=== PATIENT | female | born 1945 | race Caucasian/White ===

== ENCOUNTER 2016-09-20 10:33 | Inpatient (IN) | payer MEDICAID ==
[~2016-09-20] VITALS: Ht 147.3 cm; Wt 61.9 kg
[~2016-09-20 10:33] MED LIST: ALEN70TA30 PO; ASPI-664 PO; ATOR80TA75 PO; BACTDS PO; CALC1TAB75 PO; CEPH-443 PO; FURO40TA4 PO; IBUP-1542 PO; IBUP400T22 PO; LOSA50TA6 PO; METO-448 PO
[2016-09-20] MEDS ORDERED: morphine 2 MG INJ IV STA (11:09)
[2016-09-20] MEDS ORDERED: ONDANSETRON 4 MG INJ IV STA (11:09)
[2016-09-20] MEDS ORDERED: ASPIRIN 325 MG TAB PO STA (11:09)
[2016-09-20 11:37] LABS: EOSINOPHILS # 0.1 10^3/ul (0.0-0.5); EOSINOPHILS % 1.3 % (0.0-7.0); HEMATOCRIT 36.4 % (37.0-47.0); HEMOGLOBIN 12.5 g/dl (12.0-16.0); LYMPHOCYTES # 0.4 10^3/ul (0.8-2.9); LYMPHOCYTES % 8.5 % (15.0-51.0); MEAN CORPUSCULAR HEMOGLOBIN 31.3 pg (29.0-33.0); MEAN CORPUSCULAR HGB CONC 34.3 g/dl (32.0-37.0); MEAN CORPUSCULAR VOLUME 91.2 fl (82.0-101.0); MEAN PLATELET VOLUME 7.2 fl (7.4-10.4); MONOCYTE # 0.2 10^3/ul (0.3-0.9); MONOCYTES % 3.7 % (0.0-11.0); NEUTROPHIL # 4.3 10^3/ul (1.6-7.5); NEUTROPHILS % 86.5 % (39.0-77.0); PLATELET COUNT 207 10^3/UL (140-440); RED CELL DISTRIBUTION WIDTH 13.3 % (11.5-14.5)
[2016-09-20 11:42] LABS: CONDITION 1
[2016-09-20 11:46] LABS: CHLORIDE 104 mmol/L (97-110); SODIUM 144 mmol/L (135-144)
--- NOTE | 2016-09-20 11:46 | RADRPT ---
PROCEDURE: XR Chest. CLINICAL INDICATION: Chest pain TECHNIQUE: Single frontal view of the chest. COMPARISON: 02/16/2016 chest radiograph. FINDINGS: Postoperative changes from open thoracic surgery with sternotomy wires. Prominence of the pulmonary vasculature suggestive of mild congestion. Minimal left basilar atelect asis. No pleural effusion or pneumothorax. The cardiomediastinal silhouette is unremarkable. No acute osseous abnormalities. Vascular calcifications of the aorta are present compatible with atherosclerosis. IMPRESSION: Prominence of the pulmonary vasculature suggestive of mild congestion is similar in appearance. Min imal left basilar atelectasis appears unchanged. RPTAT: AADD .Jose Duvall MD, MD Date Time Electronically viewed and signed by .Jose Duvall MD, MD on 09/20/2016 11:46 .B/
[2016-09-20 11:48] LABS: INR 0.93; PROTIME 12.5 Sec (12.2-14.2)
[2016-09-20 11:49] LABS: ANION GAP 17 (8-16); CARBON DIOXIDE 28 mmol/L (21-31); CREATININE 0.78 mg/dl (0.44-1.00); PARTIAL THROMBOPLASTIN TIME 32.3 Sec (25.0-35.0)
[2016-09-20 11:50] LABS: BLOOD UREA NITROGEN 29 mg/dl (7-20); CALCIUM 9.2 mg/dl (8.4-10.2); GLUCOSE 94 mg/dl (70-220)
[2016-09-20 12:03] LABS: TROPONIN-I < 0.012 ng/ml (0.00-0.12)
--- NOTE | 2016-09-20 12:16 | ERA ---
ER Documentation Chief Complaint Date/Time DATE: 09/20/16 TIME: 12:10 Chief Complaint cp x 1 wk HPI Patient is a 71-year-old female who comes in complaining of intermittent chest pain that started yesterday with shortness of breath and nausea. She states the pain radiates into her neck and is described as a pressure sensation. She denies any fever, coughing, chest congestion, rhinorrhea, sore throat, or otalgia. Nothing seems to make the pain better or worse. She also describes some dyspnea on exertion. She states that she had bypass grafting done in 2006. She has not seen a snapper on since that time according to her. ROS All systems reviewed and are negative except as per history of present illness. Medications Home Meds Active Scripts Ibuprofen* (Motrin*) 400 Mg Tab, 400 MG PO Q6H Y for PAIN AND OR ELEVATED TEMP, #30 TAB Prov:YOUSIF PEREZ NP 08/27/16 Ibuprofen* (Ibuprofen*) 600 Mg Tablet, 600 MG PO Q6H Y for PAIN, #20 TAB Prov:JUAREZ VELÁSQUEZ MD 02/17/16 Reported Medications Furosemide* (Furosemide*) 40 Mg Tablet, 40 MG PO BID, TAB 03/11/15 Aspirin* (Aspirin* EC) 81 Mg Tablet.dr, 81 MG PO DAILY, TAB 03/11/15 Alendronate Sodium* (Fosamax*) 70 Mg Tablet, 70 MG PO Q7D, TAB 03/11/15 Calcium Carbonate/Vitamin D2* (Os-Samir 250+D*) 1 Tab Tablet, 1 TAB PO DAILY, TAB 03/11/15 Losartan Potassium* (Losartan Potassium*) 50 Mg Tablet, 50 MG PO DAILY, TAB 03/11/15 Metoprolol Tartrate* (Lopressor*) 25 Mg Tab, 25 MG PO BID, TAB 03/11/15 Atorvastatin* (Atorvastatin*) 80 Mg Tablet, 80 MG PO HS, TAB 03/11/15 Discontinued Scripts Cephalexin* (Keflex*) 500 Mg Capsule, 500 MG PO QID for 10 Days, CAP Prov:YOUSIF PEREZ NP 08/27/16 Sulfamethoxazole-Trimethoprim* (Bactrim* DS) 800-160 Mg Tab, 1 TAB PO BID for 10 Days, TAB Prov:YOUSIF PEREZ NP 08/27/16 Allergies Allergies: Coded Allergies: No Known Allergy (Verified , 02/16/16) PMhx/Soc History of Surgery: Yes (c-sect x3, cosmetic abd sx, open heart surgery) Anesthesia Reaction: No Hx Neurological Disorder: No Hx Respiratory Disorders: No Hx Cardiac Disorders: Yes ( HTN, CHOL, ND) Hx Psychiatric Problems: No Hx Miscellaneous Medical Probl: Yes (arthritis, osteoarthrosis, fibromyalgia) Hx Alcohol Use: No Hx Substance Use: No Hx Tobacco Use: No Smoking Status: Never smoker FmHx Family History: coronary disease Physical Exam Vitals Vital Signs Date Time Temp Pulse Resp B/P Pulse Ox O2 Delivery O2 Flow Rate FiO2 09/20/16 11:40 98.1 69 19 140/58 98 Room Air 09/20/16 10:33 98.2 65 16 120/56 100 Physical Exam Const: Well-developed well-nourished female lying on the bed in no acute distress Head: Atraumatic normocephalic Eyes: Normal Conjunctiva ENT: Normal External Ears, Nose and Mouth. Neck: Full range of motion..~ No meningismus. Resp: Clear to auscultation bilaterally Cardio: Regular rate and rhythm, no murmurs, no tenderness to palpation of the chest wall Abd: Soft, non tender, non distended. Normal bowel sounds Skin: No petechiae or rashes Back: No midline or flank tenderness Ext: No cyanosis, or edema, no tenderness to palpation of the calf Neur: Awake and alert Psych: Normal Mood and Affect Result Diagram: 09/20/16 1120 09/20/16 1120 Results 24 hrs Laboratory Tests Test 09/20/16 11:20 Activated Partial Thromboplast Time 32.3Sec Anion Gap 17 Basophils # 0.010^3/ul Basophils % 0.0% Blood Morphology Comment Blood Urea Nitrogen 29mg/dl Calcium Level 9.2mg/dl Carbon Dioxide Level 28mmol/L Chloride Level 104mmol/L Creatinine 0.78mg/dl Eosinophils # 0.110^3/ul Eosinophils % 1.3% Glucose Level 94mg/dl Hematocrit 36.4% Hemoglobin 12.5g/dl INR International Normalized Ratio 0.93 Lymphocytes # 0.410^3/ul Lymphocytes % 8.5% Mean Corpuscular Hemoglobin 31.3pg Mean Corpuscular Hemoglobin Concent 34.3g/dl Mean Corpuscular Volume 91.2fl Mean Platelet Volume 7.2fl Monocytes # 0.210^3/ul Monocytes % 3.7% Neutrophils # 4.310^3/ul Neutrophils % 86.5% Nucleated Red Blood Cells # 0.010^3/ul Nucleated Red Blood Cells % 0.0/100WBC Platelet Count 07343^3/UL Potassium Level 5.0mmol/L Prothrombin Time 12.5Sec Prothrombin Time Ratio 1.0 Red Blood Count 4.0010^6/ul Red Cell Distribution Width 13.3% Sodium Level 144mmol/L Troponin I < 0.012ng/ml White Blood Count 5.010^3/ul Current Medications Medications (Trade) Dose Ordered Sig/Khai Route PRN Reason Start Time Stop Time Status Last Admin Dose Admin Aspirin (Aspirin) 325 mg ONCE STAT PO 09/20/16 11:09 09/20/16 11:10 DC 09/20/16 11:55 Morphine Sulfate (morphine) 2 mg ONCE STAT IV 09/20/16 11:09 09/20/16 11:10 DC 09/20/16 11:55 Ondansetron HCl (Zofran Inj) 4 mg ONCE STAT IV 09/20/16 11:09 09/20/16 11:11 DC 09/20/16 11:55 Furosemide (Lasix) 20 mg ONCE ONCE IV 09/20/16 12:30 09/20/16 12:31 Procedures/MDM Chest x-ray demonstrates some mild vascular congestion but no overt failure. EKG: Rate/Rhythm: Normal sinus rhythm, borderline right ventricular conduction delay, no evidence of acute ischemia noted no old EKG available for comparison QRS, ST, T-waves: No changes consistent w/ acute ischemia Impression: No evidence of ischemia or arrhythmia Patient remains hemodynamically stable. She states her pain is improved after the morphine and aspirin. I will consult her primary care doctor for admission. Departure Diagnosis: Primary Impression: Chest pain Qualified Code: R07.2 - Precordial pain Additional Impressions: Hypertension Qualified Code: I10 - Essential hypertension Hyperlipidemia Qualified Code: E78.5 - Hyperlipidemia, unspecified hyperlipidemia type CHF (congestive heart failure) Qualified Code: I50.9 - Chronic congestive heart failure, unspecified congestive heart failure type JOHANN BLAKELY Sep 20, 2016 12:16
[2016-09-20] MEDS ORDERED: ACETAMINOPHEN 325 MG TAB PO PRN ×2 (12:30→13:30)
[2016-09-20] MEDS ORDERED: ONDANSETRON 4 MG INJ IV PRN ×2 (12:30→13:30)
[2016-09-20] MEDS ORDERED: FUROSEMIDE 20 MG INJ IV ONE (12:30)
[2016-09-20] MEDS ORDERED: BISACODYL (EC) 5 MG TAB PO PRN (13:30)
[2016-09-20] MEDS ORDERED: LORAZEPAM 2 MG INJ IV PRN (13:30)
[2016-09-20] MEDS ORDERED: NACL 0.9% 3 ML SYG IV SCH (13:30)
[2016-09-20] MEDS ORDERED: NITROGLYCERIN (SL) 0.4 MG TAB SL PRN (13:30)
[2016-09-20] MEDS ORDERED: HYDROCODONE/APAP (5/325) TAB PO PRN (13:30)
[2016-09-20] MEDS ORDERED: morphine 2 MG INJ IV PRN (13:30)
[2016-09-20] MEDS ORDERED: MAGNESIUM HYDROXIDE 30ML CUP PO PRN (13:30)
[2016-09-20] MEDS ORDERED: hydrALAzine 20 MG INJ IV PRN (14:00)
--- NOTE | 2016-09-20 17:27 | HP ---
DATE OF ADMISSION: 09/20/2016 TIME OF EVALUATION: 1330 HOURS. REASON FOR ADMISSION: Chest pain. CONSULTANTS: Dr. Jamal Hatfield, cardiology. HISTORY OF PRESENT ILLNESS: This is a 71-year-old female with past medical history of coronary artery disease status post coronary artery bypass graft in 2006, status post carotid endarterectomy, essential hypertension, dyslipidemia, fibromyalgia, and osteoporosis, who came to the emergency room with chief complaint of intermittent episodes of chest pain. The patient verbalized that the pain has been going on and off for the past 1 week. The patient verbalized that she also had dyspnea on exertion and some nausea. The patient described the pain as a pressure sensation with radiation to her neck. The patient denied any fevers or chills, cough, rhinorrhea, sore throat, otorrhea, or otalgia. The patient denied any vomiting, abdominal pain, diarrhea , hematochezia or dysuria. 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 The patient verbalized that she has been compliant with her home medications. The patient denied any long flights or long drives. The patient denied any cough pain. In the emergency room, the patient's 12-lead EKG showed normal sinus with RSR' pattern in lead V1, suggestive of right ventricular conduction delay. The patient's initial set of troponins were negative. The patient's chest x-ray showed prominence of pulmonary vascular shows mild congestion with minimal left basilar atelectasis. Patient was given IV morphine along with oral aspirin along with IV Lasix in the emergency room. PAST MEDICAL HISTORY: CAD, carotid artery disease, essential hypertension, dyslipidemia, fibromyalgia, osteoporosis. PAST SURGICAL HISTORY: x3. Carotid endarterectomy on the right side. CABG, cosmetic abdominal surgery. HOME MEDICATIONS: 1. Atorvastatin 80 mg p.o. at bedtime. 2. Losartan 50 mg p.o. daily. 3. Metoprolol 25 mg. 4. Aspirin 81 mg p.o. daily. 5. Calcium with Vitamin D2 one tablet p.o. daily. 6. Lasix 40 mg p.o. b.i.d. 7. Fosamax 70 mg p.o. every 7 days. ALLERGIES: NO KNOWN DRUG ALLERGIES. SOCIAL HISTORY: The patient lives at home. Denies any use of tobacco, alcohol or illicit drugs. REVIEW OF SYSTEMS: A 12-point review of systems were made and the review of systems are negative other than what is mentioned in history of present illness. PHYSICAL EXAMINATION: VITAL SIGNS: Temperature 98.1, pulse rate 60, respiratory rate 19, blood pressure 140/58, oxygen saturation 98% on low flow O2. GENERAL: This is a frail looking 71-year-old female lying in bed in no apparent distress. HEENT: Head normocephalic and atraumatic. Eyes: Anicteric sclerae. Conjunctivae clear. ENT: Nasal septum is midline. Oral mucosa is dry. NECK: Supple. JVD noticed. RESPIRATORY: Bilaterally clear, diminished breath sounds. No adventitious sounds heard. No use of accessory muscles of respiration. CARDIAC: Regular rate and rhythm. No murmurs heard. GASTROINTESTINAL: Abdomen soft, nontender and nondistended. Bowel sounds positive in all 4 quadrants. GENITOURINARY: Deferred. EXTREMITIES: No cyanosis, no clubbing, no edema. Peripheral pulses palpable. NEUROLOGIC: The patient is awake and oriented. Cranial nerves are grossly intact. LABORATORY AND DIAGNOSTIC DATA: WBC 5.0, hemoglobin 12.5, hematocrit 36.4, platelet 207. Sodium 144, potassium 5.0, chloride 104, carbon dioxide 20, anion gap 17, BUN 29, creatinine 0.79, glucose 94, calcium 9.2. Troponin less than 0.012. PT 12.5, INR 0.93, PTT 32.33. Chest x-ray. Prominence of the pulmonary vascular congestion suggestive of mild congestion, similar in appearance. Minimal left basilar atelectasis. Sternotomy wires. 12-lead EKG: Normal sinus rhythm with RSR' in V1. Possible right ventricular conduction delay. IMPRESSION: This is a 71-year-old female with multiple comorbidities and history of CAD, who came to the emergency room with nonspecific chest pain, who will be admitted here for further treatment and evaluation. ASSESSMENT AND PLAN: 1. Chest pain to rule out acute coronary syndrome. The patient will be admitted to inpatient telemetry floor. Serial troponins will be ordered. A 2D echocardiogram will be obtained. The patient will be continued on aspirin. A cardiology consult will be obtained. 2. Essential hypertension. The patient will be resumed on her home antihypertensives. She will also be started on p.r.n. antihypertensives for any systolic blood pressure readings greater than 160 mmHg. 3. Dyslipidemia. The patient will be continued on statins. She will be maintained on a low cholesterol diet. A fasting lipid panel will be obtained. 4. Coronary artery disease, status post right CABG. The patient will be maintained on aspirin and statins. A low cholesterol diet will be reinforced. 5. Carotid artery disease. Status post carotid endarterectomy. The patient will be maintained on aspirin and statins. 6. Osteoporosis. The patient will be resumed on Fosamax. Plan. The patient will be admitted to inpatient telemetry floor. She will be started on a low cholesterol diet. She will be started on DVT prophylaxis and gastrointestinal prophylaxis. The patient will remain a FULL CODE. Activities will be as tolerated. The rest of the patient's management will be based on the clinical course, the results of diagnostic studies and inputs from consultants. Based on the patient's clinical presentation, she most probably requires at least 1 midnight's stay for further management and evaluation of her clinical presentation. The case and management of this patient was fully discussed with Dr. Lerner. Approximately 50 minutes was spent on history and physical of this patient. ANSON LERNER MD, AM/ARIANA Conf#: [id number] DID#: [id number] MTDD
[2016-09-20 17:44] LABS: CREATINE KINASE 70 IU/L (23-200)
[2016-09-20 17:53] LABS: CK-MB 1.23 ng/ml (0.0-2.4)
[2016-09-20 17:58] LABS: TROPONIN-I < 0.012 ng/ml (0.00-0.12)
[2016-09-20] MEDS: FUROSEMIDE 40 MG TAB PO SCH (18:26)
[2016-09-20 19:00] VITALS: TEMP 98.2
--- NOTE | 2016-09-20 20:22 | RADRPT ---
Echocardiogram Report Patient Name: STEFANY NICHOLSON Gender: Female Date: 1945 Study Date: 20-Sep-2016 Short Filler Bunch Machine Operator: Destini [facility] Location: -5 Ref. Physician: ANSON POSADA Quality: Technically Difficult Study Procedures: Transthoracic echocardiogram with complete 2D, M-Mode, and doppler examination. Indications: Chest Pain. 2D/M Mode Doppler Measurement Value Normal Ranges Measurement Value Normal Ranges LVIDd 2D 3.7 3.5 - 5.6 cm AV Peak Mika 1.5 m/sec LVIDs 2D 2.4 2.1 - 4.1 cm AV Peak PG 8.0 mmHg FS 2D 35.9 % LVOT Peak Mika 0.7 m/sec LVPWd 2D 1.2 0.6 - 1.1 cm LVOT Peak PG 2.0 mmHg IVSd 2D 1.5 0.6 - 1.1 cm MV E Peak Mika 0.7 m/sec IVS/LVPW 2D 1.3 MV A Peak Mika 0.9 m/sec AoR Diam 2D 2.7 2.0 - 3.7 cm MV E/A 0.7 LA/Ao 2D 2 0 - 1 MV Decel Time 285 msec EDV 2D 49.8 cm3 MV E/A 0.7 ESV 2D 13.1 cm3 LA Dimen 2D 4.4 2.3 - 4.0 cm Findings Left Ventricle: Normal left ventricular systolic function. Normal left ventricular cavity size. Mild asymmetric septal hypertrophy. Ejection fraction is visually estimated at 60 %. Tissue Doppler/Mitral Doppler indices are consistent with impaired relaxation (Stage I diastolic dysfunction). Right Ventricle: Normal right ventricular size. Left Atrium: There is mild enlargement of left atrium. Right Atrium: Not well visualized. Prominent Eustachian valve (normal variant). Mitral Valve: Mild mitral leaflet calcification. Mild mitral annular calcification. Trace mitral regurgitation. Aortic Valve: Normal appearance of the aortic valve. Mild aortic valve regurgitation. Tricuspid Valve: Normal appearance and function of the tricuspid valve with trace physiologic regurgitation. Pulmonic Valve: Pulmonic valve not well visualized. There is trace pulmonic regurgitation. Pericardium: Normal pericardium with no significant pericardial effusion. Aorta: Normal aortic root. IVC: Normal size and normal respiratory collapse consistent with normal right atrial pressure. Pulmonary Artery: Not well visualized. Conclusions Normal left ventricular systolic function. Normal left ventricular cavity size. Mild asymmetric septal hypertrophy. Ejection fraction is visually estimated at 60 %. Tissue Doppler/Mitral Doppler indices are consistent with impaired relaxation (Stage I diastolic dysfunction). There is mild enlargement of left atrium. Mild mitral leaflet calcification. Mild mitral annular calcification. Trace mitral regurgitation. Normal appearance of the aortic valve. Mild aortic valve regurgitation. Normal appearance and function of the tricuspid valve with trace physiologic regurgitation. Pulmonic valve not well visualized. There is trace pulmonic regurgitation. Electronically Signed By: Jamal Hatfield 20-Sep-2016 20:22:17 -0800 Patient Name: STEFANY NICHOLSON Study Date: 20-Sep-[id number]
[2016-09-20 20:38] VITALS: PULSE 81
[2016-09-20 20:41] VITALS: Ht 147.3 cm; Wt 61.9 kg
[2016-09-20 20:42] VITALS: BP 144/65; PULSE 80; RESP 18
--- NOTE | 2016-09-20 20:50 | CONS ---
DATE OF ADMISSION: 09/20/2016 DATE OF CONSULTATION: 09/20/2016 TYPE OF CONSULTATION: Cardiology. REASON FOR CONSULTATION: Chest pain, assess for acute coronary syndrome. REQUESTING PHYSICIAN: 1. Escobar Nathan NP, from the hospitalist service. 2. Anna Lerner MD, from the hospitalist service. HISTORY OF PRESENT ILLNESS: Ms. Stovall is a 71-year-old female, history of coronary artery disease, status post coronary bypass grafting in 2006, carotid endarterectomy, hypertension, dyslipidemia, f ibromyalgia, osteoporosis, who initially presented with complaints of substernal chest pain. The pa tient states the chest pain going on and off for approximately 1 week and describes it as a pressure -like sensation, radiating toward her back. Upon arrival in the emergency department, temperature 9 8.2, blood pressure 120/56, pulse 65, respiratory rate 16, saturating 100%. The patient's labs reve aled a white count of 5.0, hemoglobin 12.5, platelet count of 207, a sodium of 144, potassium 5.0, c reatinine 0.78, BUN 29. Troponin negative. BNP of 163. INR of 0.93. The patient underwent a ches t x-ray revealing a prominence of pulmonary vascular congestion with mild congestion, minimal left b asilar atelectasis. Patient's electrocardiogram revealed a normal sinus rhythm, rate of 66, with a normal axis, borderline inferior Q's, and T-wave flattening in the lateral leads, aVL. The patient in the emergency department has been treated with Lasix 20 mg IV x1, aspirin 325 mg p.o. x1, morphin e 2 mg IV x1, Tylenol, Zofran and now awaits admit to the hospital. The patient denies ongoing ches t pain at this time. PAST MEDICAL HISTORY: As above in HPI. MEDICATIONS CURRENTLY IN HOSPITAL 1. Aspirin 81 mg daily. 2. Lovenox subcu daily. 3. Losartan 50 mg daily. 4. Pepcid 20 mg q.12. 5. Lipitor 80 mg at bedtime. 6. Metoprolol 25 mg p.o. b.i.d. 7. Lasix 40 mg p.o. b.i.d. 8. Hydralazine p.r.n. 9. Ativan p.r.n. 10. Zofran p.r.n. 11. Sublingual nitroglycerin p.r.n. 12. Tylenol p.r.n. 13. [place] p.r.n. 14. Morphine p.r.n. 15. Magnesium hydroxide p.r.n. 16. Dulcolax p.r.n. ALLERGIES: NO KNOWN DRUG ALLERGIES. SOCIAL HISTORY: No tobacco, EtOH, illicit drug use. FAMILY HISTORY: No history of sudden cardiac or early CAD. REVIEW OF SYSTEMS As noted above in HPI: CONSTITUTIONAL: No fevers, chills. PULMONARY: Shortness of breath. CARDIOVASCULAR: Intermittent chest pain. GASTROINTESTINAL: No vomiting. GENITOURINARY: No hematuria. MUSCULOSKELETAL: Degenerative joint disease. PSYCHIATRIC: Denies depression. NEUROLOGIC: No documented history of CVA. ENDOCRINE: No documented history of diabetes mellitus. PHYSICAL EXAMINATION VITAL SIGNS: Temperature of 98.2, blood pressure 154/63, pulse 79, respiratory rate 18, saturating 96%. GENERAL: The patient is alert, awake, complaining of intermittent chest pain. NECK: JVP approximately 8 to 9 cm of water. CHEST: Fair air movement throughout. HEART: Regular rate, rhythm. Normal S1, S2. I/ systolic murmur, nondisplaced PMI. ABDOMEN: Positive bowel sounds, soft. EXTREMITIES: No pitting edema, 1+ pulses bilaterally at the dorsalis pedis. LABORATORIES: As above in HPI; with additionally since admit, the patient had a TSH return within n ormal limits at 2.15, a free T4 within normal limits at 1.01 and the 2nd troponin returned negative. IMAGING STUDIES: As above in HPI. No further imaging studies for my review at this time. ELECTROCARDIOGRAM: As above in HPI. No further electrocardiograms for my review at this time. IMPRESSION 1. Chest pain, assess for acute coronary syndrome. 2. Abnormal electrocardiogram, assess for acute coronary syndrome. 3. History of coronary artery disease, status post coronary artery bypass grafting 7 years prior. 4. Congestive heart failure; question systolic versus diastolic, but acute, given presentation. 5. Hypertension, mildly elevated. 6. Mildly Increased BNP, consistent with the patient's congestive heart failure. RECOMMENDATIONS 1. At this time, would admit patient to telemetry monitoring to follow rhythm and rate control clos dustin. 2. Check serial EKGs to assess for any significant ongoing changes. Thus, an EKG in the morning, E KG for any complaints of chest pain or change in rhythm. 3. Complete the patient's rule out for myocardial infarction, as the patient's chest pain was not d ue to an acute coronary syndrome, such as acute myocardial infarction, thus send a final troponin. 4. Would continue the patient's baseline aspirin for prophylaxis against cardiovascular events and additionally continue the patient's baseline beta kike and losartan, following symptomatology yolie sely. We will initiate patient on low-dose oral nitrates. 5. Check a fasting lipid panel and adjust the patient's statin therapy as necessary. 6. Check a 2D echocardiogram to further assess patient's ejection fraction, wall motion to rule out any major valve abnormalities. 7. If the patient does rule out for myocardial infarction, given the patient's multiple cardiac ris k factors, including history of coronary artery bypass graft surgery, at least patient will benefit from further risk stratification with inpatient stress test. The test will be scheduled to take felisha ce first thing in the morning. Dictated By: RACHAEL MICHAEL/ARIANA Conf#: [id number] DID#: [id number] CC: ESCOBAR NATHAN NP; ANNA LERNER MD;*[facility]*
[2016-09-20] MEDS ORDERED: ATORVASTATIN 80 MG TAB PO SCH (21:00)
[2016-09-20] MEDS: ISOSORBIDE DINITRATE 10 MG TAB PO SCH (21:00)
[2016-09-20] MEDS: METOPROLOL 25 MG TAB PO SCH (21:44)
[2016-09-20] MEDS: FAMOTIDINE 20 MG TAB PO SCH (21:45)
[2016-09-21] VITALS (8 sets, daily range): BP systolic 97–129; BP diastolic 50–61; PULSE 55–75; RESP 16–18
[2016-09-21 00:03] LABS: CK-MB 0.86 ng/ml (0.0-2.4)
[2016-09-21 00:06] LABS: TROPONIN-I 0.011 ng/ml (0.00-0.12)
[2016-09-21] MEDS: FUROSEMIDE 40 MG TAB PO SCH (06:06)
[2016-09-21 06:48] LABS: BASOPHILS % 0.3 % (0.0-2.0); EOSINOPHILS # 0.1 10^3/ul (0.0-0.5); EOSINOPHILS % 1.5 % (0.0-7.0); LYMPHOCYTES # 0.5 10^3/ul (0.8-2.9); LYMPHOCYTES % 12.2 % (15.0-51.0); MEAN CORPUSCULAR HEMOGLOBIN 31.2 pg (29.0-33.0); MEAN CORPUSCULAR HGB CONC 34.2 g/dl (32.0-37.0); MEAN CORPUSCULAR VOLUME 91.2 fl (82.0-101.0); MEAN PLATELET VOLUME 7.6 fl (7.4-10.4); MONOCYTE # 0.3 10^3/ul (0.3-0.9); MONOCYTES % 7.4 % (0.0-11.0); NEUTROPHILS % 78.6 % (39.0-77.0); PLATELET COUNT 198 10^3/UL (140-440); RED BLOOD COUNT 3.84 10^6/ul (4.20-5.40); RED CELL DISTRIBUTION WIDTH 13.5 % (11.5-14.5); UNCORRECTED WBC 3.8 10^3/ul (4.8-10.8); WHITE BLOOD COUNT 3.8 10^3/ul (4.8-10.8)
[2016-09-21 06:56] LABS: ALBUMIN 3.7 g/dl (3.3-4.9)
[2016-09-21 06:59] LABS: ALBUMIN/GLOBULIN RATIO 1.12; BILIRUBIN,INDIRECT 0.4 mg/dl (0-1.1); BILIRUBIN,TOTAL 0.4 mg/dl (0.2-1.3); CREATININE 0.81 mg/dl (0.44-1.00)
[2016-09-21 07:00] LABS: CALCIUM 8.4 mg/dl (8.4-10.2)
[2016-09-21 07:11] LABS: CHOL/HDL RATIO 3.8 RATIO; MAGNESIUM 1.8 mg/dl (1.7-2.5); PHOSPHORUS 3.9 mg/dl (2.5-4.9)
[2016-09-21 07:21] LABS: CONDITION 1
[2016-09-21] MEDS ORDERED: ASPIRIN 81 MG TAB PO SCH (09:00)
[2016-09-21] MEDS ORDERED: ENOXAPARIN 40 MG/0.4 ML SYG SC SCH (09:00)
[2016-09-21] MEDS ORDERED: CALCIUM/VITAMIN D (250/125) TAB PO SCH (09:00)
[2016-09-21] MEDS ORDERED: LOSARTAN 50 MG TAB PO SCH (09:00)
[2016-09-21] MEDS: METOPROLOL 25 MG TAB PO SCH (09:43)
[2016-09-21] MEDS: FAMOTIDINE 20 MG TAB PO SCH (09:44)
[2016-09-21] MEDS: ISOSORBIDE DINITRATE 10 MG TAB PO SCH ×2 (09:44→13:00)
[2016-09-21] MEDS ORDERED: REGADENOSON 0.4 MG/5 ML SYG ONE (13:25)
--- NOTE | 2016-09-21 14:15 | CONS ---
Date/Time of Note Date/Time of Note DATE: 09/21/16 TIME: 14:11 Assessment/Plan Assessment/Plan Chief Complaint/Hosp Course IMPRESSION: 1. Chest pain, assess for acute coronary syndrome.-negative troponin x 3/NL EF by echo this admit 2. Palpitations. 3. Premature atrial contractions by telemetry. 4. Hypertension-well controlled on lower end 5. Abnormal electrocardiogram, assess for acute coronary syndrome. 6. Dyslipidemia. 7. Diabetes mellitus. 8. CHF-diastolic acute on chronic Recc: -Tele -serial ecg's -Continue current BB/ARB/oral nitrates -continue asa/statin -Lexiscan stress test today Problems: Consultation Date/Type/Reason Admit Date/Time Sep 20, 2016 at 12:23 Initial Consult Date 09/20/2016 Type of Consultation: Cardiology Reason for Consultation chest pain Referring Provider: ANNA LERNER Exam/Review of Systems Vital Signs Vitals Vital Signs Date Time Temp Pulse Resp B/P Pulse Ox O2 Delivery O2 Flow Rate FiO2 09/21/16 12:15 97.9 60 18 104/52 97 09/21/16 04:36 Room Air 09/20/16 19:00 2.0 Intake and Output 09/20/16 09/20/16 09/21/16 15:00 23:00 07:00 Intake Total 220 ml Balance 220 ml Exam Review of Systems: CONSTITUTIONAL: No fevers, chills. PULMONARY: No sob CARDIOVASCULAR: Intermittent chest pain GASTROINTESTINAL: No nausea/vomiting. GENITOURINARY: No hematuria/dysuria. MUSCULOSKELETAL: No myagias/arthalgias. PSYCHIATRIC: The patient denies depression. NEUROLOGIC: No weakness Constitutional: alert, oriented Psych: no complaints Head: normocephalic ENMT: mucosa pink and moist Neck: jvd (9 cm water), supple Respiratory: clear to auscultation Cardiovascular: regular rate and rhythm Gastrointestinal: non-tender, soft Musculoskeletal: muscle tone Extremities: edema (nonr) Neurological: other (No focal deficits) Results Result Diagram: 09/21/16 0540 09/21/16 0540 Results 24 hrs Laboratory Tests Test 09/20/16 16:55 09/20/16 23:08 09/21/16 05:40 Creatine Kinase 70 61 Creatine Kinase Index 1.8 1.4 Creatinine Kinase MB (Mass) 1.23 0.86 Troponin I < 0.012 0.011 Alanine Aminotransferase (ALT/SGPT) 45 Albumin 3.7 Albumin/Globulin Ratio 1.12 Alkaline Phosphatase 74 Anion Gap 16 Aspartate Amino Transf (AST/SGOT) 33 B-Type Natriuretic Peptide 192 H Basophils # 0.0 Basophils % 0.3 Blood Urea Nitrogen 24 H Calcium Level 8.4 Carbon Dioxide Level 28 Chloride Level 99 Cholesterol Level 146 Cholesterol/HDL Ratio 3.8 Creatinine 0.81 Direct Bilirubin 0.00 Eosinophils # 0.1 Eosinophils % 1.5 Globulin 3.30 H Glucose Level 92 HDL Cholesterol 38 Hematocrit 35.0 L Hemoglobin 12.0 Indirect Bilirubin 0.4 LDL Cholesterol, Calculated 91 Lymphocytes # 0.5 L Lymphocytes % 12.2 L Magnesium Level 1.8 Mean Corpuscular Hemoglobin 31.2 Mean Corpuscular Hemoglobin Concent 34.2 Mean Corpuscular Volume 91.2 Mean Platelet Volume 7.6 Monocytes # 0.3 Monocytes % 7.4 Neutrophils # 3.0 Neutrophils % 78.6 H Nucleated Red Blood Cells # 0.0 Nucleated Red Blood Cells % 0.0 Phosphorus Level 3.9 Platelet Count 198 Potassium Level 4.0 Red Blood Count 3.84 L Red Cell Distribution Width 13.5 Sodium Level 139 Total Bilirubin 0.4 Total Protein 7.0 Triglycerides Level 86 White Blood Count 3.8 #L Medications Medications Current Medications Lorazepam (Ativan) 0.5 mg Q6H PRN IV ANXIETY; Start 09/20/16 at 13:30 Ondansetron HCl (Zofran Inj) 4 mg Q6H PRN IV NAUSEA AND/OR VOMITING; Start 08/25 at 13:30 Aspirin (Aspirin) 81 mg DAILY PO Last administered on 09/21/16t 09:44; Admin Dose 81 MG; Start 09/21/16 at 09:00 Nitroglycerin (Nitroglycerin (Sl Tab) 0.4 Mg) 1 tab Q5M PRN SL CHEST PAIN; Start 09/20/16 at 13:30 Acetaminophen (Tylenol Tab) 650 mg Q6H PRN PO PAIN LEVEL 1-3 OR FEVER; Start at 13:30 Acetaminophen/ Hydrocodone Bitart ([place] (5/325)) 1 tab Q6H PRN PO PAIN LEVEL 4 -6; Start 09/20/16 at 13:30 Morphine Sulfate (morphine) 2 mg Q4H PRN IV PAIN LEVEL 7-10; Start 09/20/16 at 13:30 Magnesium Hydroxide (Milk Of Mag) 30 ml DAILY PRN PO CONSTIPATION; Start at 13:30 Bisacodyl (Dulcolax) 5 mg DAILY PRN PO CONSTIPATION; Start 09/20/16 at 13:30 Famotidine (Pepcid) 20 mg Q12 PO Last administered on 09/21/16 09:44; Admin Dose 20 MG; Start 09/20/16 at 21:00 Enoxaparin Sodium (Lovenox) 40 mg DAILY SC Last administered on 09/21/16 09:45 ; Admin Dose 40 MG; Start 09/21/16 at 09:00 Atorvastatin Calcium (Lipitor) 80 mg HS PO Last administered on 09/20/16 21:44 ; Admin Dose 80 MG; Start 09/20/16 at 21:00 Calcium/Vitamin D (Oyster Shell/ Vit-D (250/125)) 1 tab DAILY PO Last administered on 09/21/16 09:44; Admin Dose 1 TAB; Start 09/21/16 at 09:00 Losartan Potassium (Cozaar) 50 mg DAILY PO Last administered on 09/21/16 09:43 ; Admin Dose 50 MG; Start 09/21/16 at 09:00 Metoprolol Tartrate (Lopressor) 25 mg BID PO Last administered on 09/21/16 09: 43; Admin Dose 25 MG; Start 09/20/16 at 21:00 Hydralazine HCl (Apresoline) 10 mg Q6H PRN IV SBP>160; Start 09/20/16 at 14:00 Isosorbide Dinitrate (Isordil) 10 mg TID PO Last administered on 09/21/16 09: 44; Admin Dose 10 MG; Start 09/20/16 at 21:00 RACHAEL CRAMER Sep 21, 2016 14:14
--- NOTE | 2016-09-21 15:52 | RADRPT ---
PROCEDURE: Lexiscan myocardial perfusion study CLINICAL INDICATION: 71 -year-old patient complaining of chest pain. TECHNIQUE: Lexiscan 0.4 mg intravenously separate acquisition gated myocardial perfusion SPECT usi ng Tc 99m Myoview 28.2 mCi intravenously at stress and Tc-99m Myoview, 10.2 mCi intravenously at res t was performed using the rest/stress sequence. Poststress Myoview SPECT images were obtained in th e supine position. COMPARISON: No prior studies. FINDINGS: Perfusion images reveal no evidence of perfusion defects. Lexiscan post stress gated SPECT images demonstrate no wall motion abnormalities. IMPRESSION: 1. No evidence of perfusion defects. 2. No wall motion abnormalities. 3. The left ventricle ejection fraction at stress is 65%. A call report was made to Dr. Hatfield at 03:50 p.m. on September 21, 2016. RPTAT: HH .Marina Celaya MD, Date Time Electronically viewed and signed by .Marina Celaya MD, MD on 09/21/2016 15:52 .L/
--- NOTE | 2016-09-21 16:07 | PDOCDIS ---
Discharge Instructions DIAGNOSIS Discharge Diagnosis: Atypical chest pain CONDITION Patient Condition: Stable HOME CARE INSTRUCTIONS: Diet Instructions: Low Fat /Cholesterol FOLLOW UP/APPOINTMENTS Appointments Darnell Gonzalez MD Specialty: Internal Medicine Office Address: [address] [place], [place] [id number] Office OTHER ORDERS: Other Orders: 1. Resume home medications. 2. Low-cholesterol diet as tolerated. 3. Resume activities as tolerated. 4. Follow-up with your primary care physician in 2 weeks. If you do not have a primary care physician, please call Dr. Darnell Gonzalez's office. 5. Please call 911 or go to the nearest emergency room if you have any significant chest pain. ANSON POSADA NP Sep 21, 2016 16:07
--- NOTE | 2016-09-21 17:08 | CARRPT ---
DATE OF PROCEDURE: 09/21/2016 PROCEDURE: Lexiscan Cardiolite stress test. REASON FOR STRESS TESTING: Chest pain, assess for ischemia. BASELINE VITAL SIGNS AND ELECTROCARDIOGRAM: Pulse 52, blood pressure 97/55. Electrocardiogram reve als sinus bradycardia, rate 52, normal axis, normal intervals with lateral T-wave inversion. PROCEDURE: The patient underwent standard Lexiscan infusion protocol over 10 seconds followed by ra diolabeled tracer. The patient's test was stopped due to completion of protocol. Maximum achieved blood pressure during the test 173/74. Maximum heart rate during the test 94. ELECTROCARDIOGRAM FINDINGS: The patient did not develop any new Lexiscan-induced ST or T-wave peoples es from baseline abnormalities. No documented PVCs. SYMPTOMS: The patient had complaints of mild shortness of breath, resolved in recovery. No chest p ain. IMPRESSION: 1. No Lexiscan-induced ST or T-wave changes from baseline abnormalities diagnostic of cardiac ische joe. 2. Complaints of shortness breath during stress test, resolved in recovery. No documented prematur e ventricular contractions during stress testing. 3. Report of nuclear images to follow in separate dictation. Dictated By: RACHAEL MICHAEL/ARIANA Conf#: [id number] DID#: [id number] CC: ANNA LERNER MD;*EndCC*
--- NOTE | 2016-09-21 17:36 | DS ---
DATE OF ADMISSION: 09/20/2016 DATE OF DISCHARGE: 09/21/2016 FINAL DIAGNOSES: 1. Chest pain. Acute coronary syndrome ruled out. 2. Essential hypertension. 3. Dyslipidemia. 4. Coronary artery disease status post coronary artery bypass graft. 5. Carotid artery disease, status post carotid endarterectomy. 6. Osteoporosis. CONSULTATIONS: Dr. Jamal Hatfield from Cardiology. HOSPITAL COURSE: This is a 71-year-old female with past medical history of coronary artery disease status post CABG in 2006, essential hypertension, dyslipidemia, fibromyalgia and osteoporosis who came to the emergency room with chief complaint of intermittent episodes of chest pain. The patient verbalized the pain has been going on and off for the past 1 week. The patient verbalized that she also had dyspnea on exertion and some nausea. The patient described the chest pain as a pressure sensation with radiation to her neck. The patient denied any fevers,chills, cough, rhinorrhea, sore throat , otorrhea or otalgia. The patient denied any vomiting, abdominal pain, diarrhea, hematochezia or dysuria. The patient does not follow up with a hvac installation technician outside. The patient verbalized that she has been compliant with her home medications. The patient's 12-lead EKG showed normal sinus rhythm with RSR' in V1 indicating right ventricular conduction delay. Provided the patient's history of present illness and the EKG findings and comorbidities, a clinical decision was made to admit the patient to inpatient setting to have her further evaluated. The patient was admitted to inpatient telemetry floor. Serial troponins were ordered. A 2D echocardiogram was ordered. Cardiology consult was obtained. The patient's serial troponins remained negative. The patient underwent a nuclear medicine cardiac stress test that was negative for any reversible perfusion defects. The patient's left ventricular ejection fraction at stress was 65%. The patient was ruled out for any underlying coronary syndrome. The patient's chest pain could have a musculoskeletal versus some other etiology unless otherwise proven. The patient was maintained on aspirin for her underlying history of CABG. The patient was maintained on antihypertensives for her underlying essential hypertension. The patient's blood pressure was well controlled during the hospital course. The patient was maintained on statins for her underlying dyslipidemia. The patient's fasting lipid panel was optimal. The patient's hemoglobin A1c was within normal limits. The patient has underlying osteoporosis. The patient was on bisphosphonates. The patient' s vitamin D level was within normal limits. The patient had a stable hospital course. The patient was cleared by consultants to be discharged home. The patient denied any complaints at the time of discharge. DISPOSITION AND PLAN: The patient will be discharged home today. The patient was instructed to take a low-cholesterol diet. She was instructed to resume her home medications. Patient was instructed to resume activities as tolerated. The patient was instructed to follow up with her primary care physician in 2 weeks and if she does not have a primary care physician and to please call Dr. Darnell Gonzalez's office.. The patient was instructed to call 911 or go to the nearest emergency room if she has any significant chest pain. The patient verbalized understanding of her discharge instructions. CONDITION AT DISCHARGE: Stable. DISCHARGE MEDICATIONS: 1. Fosamax plus 70 mg p.o. every 7 days. 2. Aspirin 81 mg p.o. daily. 3. Atorvastatin 80 mg p.o. at bedtime. 4. Os-Samir 1 tablet p.o. daily. 5. Lasix 40 mg p.o. b.i.d. 6. Losartan 50 mg p.o. daily. 7. Metoprolol 25 mg p.o. b.i.d. PERTINENT LABORATORY AND DIAGNOSTIC DATA: 1. 2D echocardiogram. Ejection fraction of 60%. Stage I diastolic dysfunction. Mild aortic valve regurgitation. Trace mitral regurgitation. Trace pulmonic regurgitation. 2. Nuclear medicine cardiac stress test. No evidence of perfusion defects. No wall motion abnormalities. The left ventricular ejection fraction at stress is 65%. 3. Chest x-ray. Prominent central pulmonary vasculature suggestive of mild congestion similar in appearance. 4. Hemoglobin A1c 5.6. 5. Fasting lipid panel: Triglycerides 86, total cholesterol 146, LDL 91, HDL 38. 6. Latest CBC: WBC 3.8, hemoglobin 12.0, hematocrit 35.0, platelet count 198. 7. Latest BMP: Sodium 139, potassium 4.0, chloride 99, carbon dioxide 28, anion gap 16, BUN 24, creatinine 0.81, glucose 92, calcium 8.4, phosphorus 3.9, magnesium 1.8. At this time, I would like to thank Dr. Hatfield for seeing the patient, doing the necessary procedures, and providing clinical recommendations. The case and management of this patient was fully discussed with Dr. Lerner. Approximately 35 minutes was spent on coordinating the discharge on this patient. ANSON LERNER MD, AM/ARIANA Conf#: [id number] DID#: [id number] MTDD
--- NOTE | 2016-09-25 10:57 | RADRPT ---
Vent Rate: 62 bpm RR Interval: 0 msec MI Interval: 170 msec QRS Duration: 94 msec QT Interval: 406 msec QTC Interval: 412 msec P-R-T [place]: 31 - 26 - 81 degrees Normal sinus rhythm Incomplete right bundle branch block Cannot rule out Anterior infarct , age undetermined Abnormal ECG Electronically Signed By: Sundar Prince [id number]
== END 2016-09-21 19:18 | disposition home or self-care (01) | DRG 313 ==
LOC: E/R 10:33 → MS4 12:23
PROVIDERS: ADMIT Family Medicine; ATTEND Family Medicine
DX: R07.9 Chest pain, unspecified (principal); I50.33 Acute on chronic diastolic (congestive) heart failure; I10 Essential (primary) hypertension; E78.5 Hyperlipidemia, unspecified; Z95.1 Presence of aortocoronary bypass graft; M81.0 Age-related osteoporosis without current pathological fracture; R00.2 Palpitations
CPT/HCPCS: 36415; 71010; 78452; 80048; 80053; 80061; 82550; 82553; 82652; 83036; 83735; 83880; 84100; 84439; 84443; 84484; 85025; 85610; 85730; 93005; 93017; 93306; 96374; 96375; J1940; A9500; A9505; J1650; J2270; J2405; J2785

== ENCOUNTER 2017-01-10 21:37 | Emergency (ER) | payer MEDICAID ==
[~2017-01-10] VITALS: Ht 152.4 cm; Wt 63.4 kg
[~2017-01-10 21:37] MED LIST changes: -BACTDS PO; -CEPH-443 PO
[2017-01-10 21:54] VITALS: Ht 152.4 cm; Wt 63.4 kg
--- NOTE | 2017-01-11 04:37 | ERA ---
ER Documentation Chief Complaint Date/Time DATE: 01/11/17 TIME: 04:36 Chief Complaint Abdominal pain HPI The patient is a 71-year-old female, presenting to the ER because of diffuse abdominal pain for 1 day and dysuria. She has similar symptoms previously, denies fever, chills, neck pain, chest pain,, vomiting, diarrhea, constipation. She does not smoke nor drink Past medical history: Hypertension, dyslipidemia, CAD Past surgical history: CABG, right carotid endarterectomy, , ventral herniorrhaphy ROS All systems reviewed and are negative except as per history of present illness. Medications Home Meds Active Scripts Ibuprofen* (Motrin*) 400 Mg Tab, 400 MG PO Q6H Y for PAIN AND OR ELEVATED TEMP, #30 TAB Prov:JUAREZ VELÁSQUEZ MD 01/11/17 Ibuprofen* (Motrin*) 400 Mg Tab, 400 MG PO Q6H Y for PAIN AND OR ELEVATED TEMP, #30 TAB Prov:YOUSIF PEREZ NP 08/27/16 Ibuprofen* (Ibuprofen*) 600 Mg Tablet, 600 MG PO Q6H Y for PAIN, #20 TAB Prov:JUAREZ VELÁSQUEZ MD 02/17/16 Reported Medications Furosemide* (Furosemide*) 40 Mg Tablet, 40 MG PO BID, TAB 03/11/15 Aspirin* (Aspirin* EC) 81 Mg Tablet.dr, 81 MG PO DAILY, TAB 03/11/15 Alendronate Sodium* (Fosamax*) 70 Mg Tablet, 70 MG PO Q7D, TAB 03/11/15 Calcium Carbonate/Vitamin D2* (Os-Samir 250+D*) 1 Tab Tablet, 1 TAB PO DAILY, TAB 03/11/15 Losartan Potassium* (Losartan Potassium*) 50 Mg Tablet, 50 MG PO DAILY, TAB 03/11/15 Metoprolol Tartrate* (Lopressor*) 25 Mg Tab, 25 MG PO BID, TAB 03/11/15 Atorvastatin* (Atorvastatin*) 80 Mg Tablet, 80 MG PO HS, TAB 03/11/15 Allergies Allergies: Coded Allergies: No Known Allergy (Verified , 09/20/16) PMhx/Soc History of Surgery: Yes (cabg, cosmetic abd. sx, right sided neck surg) Anesthesia Reaction: No Hx Neurological Disorder: No Hx Respiratory Disorders: No Hx Cardiac Disorders: Yes (cad, mi, htn) Hx Psychiatric Problems: No Hx Miscellaneous Medical Probl: Yes (osteoarthritis, fibromyalgia) Hx Alcohol Use: No Hx Substance Use: No Hx Tobacco Use: No Smoking Status: Never smoker Physical Exam Vitals Vital Signs Date Time Temp Pulse Resp B/P Pulse Ox O2 Delivery O2 Flow Rate FiO2 01/10/17 21:54 97.5 54 16 187/77 96 Physical Exam Const: No acute distress. Head: Atraumatic. Eyes: Normal Conjunctiva. ENT: Normal External Ears, Nose and Mouth. Neck: Full range of motion. No meningismus. Resp: Clear to auscultation bilaterally. Cardio: Regular rate and rhythm, no murmurs. Abd: Soft, non distended, normal bowel sounds, vague and diffuse abdominal tenderness, no rigidity, rebound, CVA tenderness Skin: No petechiae or rashes. Back: No midline or flank tenderness. Ext: No cyanosis, or edema. Neur: Awake and alert. No focal deficit Psych: Normal Mood and Affect. Result Diagram: 01/11/17 0455 01/11/17 0455 Results 24 hrs Laboratory Tests Test 01/11/17 04:55 01/11/17 05:07 White Blood Count 4.510^3/ul Red Blood Count 3.9810^6/ul Hemoglobin 12.2g/dl Hematocrit 38.5% Mean Corpuscular Volume 96.7fl Mean Corpuscular Hemoglobin 30.7pg Mean Corpuscular Hemoglobin Concent 31.7g/dl Red Cell Distribution Width 12.6% Platelet Count 70482^3/UL Mean Platelet Volume 9.3fl Neutrophils % 56.8% Lymphocytes % 32.5% Monocytes % 6.7% Eosinophils % 3.6% Basophils % 0.2% Nucleated Red Blood Cells % 0.0/100WBC Neutrophils # 2.610^3/ul Lymphocytes # 1.510^3/ul Monocytes # 0.310^3/ul Eosinophils # 0.210^3/ul Basophils # 0.010^3/ul Nucleated Red Blood Cells # 0.010^3/ul Sodium Level 140mmol/L Potassium Level 4.6mmol/L Chloride Level 105mmol/L Carbon Dioxide Level 28mmol/L Anion Gap 12 Blood Urea Nitrogen 21mg/dl Creatinine 0.80mg/dl Glucose Level 95mg/dl Calcium Level 9.6mg/dl Total Bilirubin 0.3mg/dl Direct Bilirubin 0.00mg/dl Indirect Bilirubin 0.3mg/dl Aspartate Amino Transf (AST/SGOT) 30IU/L Alanine Aminotransferase (ALT/SGPT) 51IU/L Alkaline Phosphatase 77IU/L Total Protein 7.6g/dl Albumin 4.1g/dl Globulin 3.50g/dl Albumin/Globulin Ratio 1.17 Lipase 159U/L Bedside Urine pH (LAB) 6.0 Bedside Urine Protein (LAB) Negative Bedside Urine Glucose (UA) Negative Bedside Urine Ketones (LAB) Negative Bedside Urine Blood Negative Bedside Urine Nitrite (LAB) Negative Bedside Urine Leukocyte Esterase (L Trace Current Medications Medications (Trade) Dose Ordered Sig/Khai Route PRN Reason Start Time Stop Time Status Last Admin Dose Admin Morphine Sulfate (morphine) 2 mg ONCE STAT IV 01/11/17 04:41 01/11/17 04:42 DC 01/11/17 04:54 Ondansetron HCl (Zofran Inj) 4 mg ONCE STAT IV 01/11/17 04:41 01/11/17 04:42 DC 01/11/17 04:53 Procedures/[place] [id number] Radiology Main Line: [phone] DIAGNOSTIC IMAGING REPORT Patient: STEFANY NICHOLSON : 1945 Age: 71 Sex: F [id number] DOS: 01/11/17 0441 Ordering MD: JUAREZ VELÁSQUEZ MD Location: E/R Room/Bed: PROCEDURE: CT Abdomen and pelvis without contrast. CLINICAL INDICATION: Abdominal pain. TECHNIQUE: CT scan of the abdomen and pelvis was performed on a multi- detector high-resolution CT scanner. Contiguous axial images were obtained from the lung bases to the ischial tuberosities without intravenous contrast. Coronal and sagittal reformatted images were also obtained. Images were reviewed on the PACS workstation. One or more of the following dose reduction techniques were used: - Automated exposure control. - Adjustment of the mA and/or kV according to patient size. - Use of iterative reconstruction technique. Exam CTD/vol = 11.21 mGy. Total exam DLP = 620.78 mGy-cm. COMPARISON: 02/16/2016. FINDINGS: Evaluation of the lung bases demonstrates mild right basilar atelectasis/ scarring. The heart is enlarged. Mediasternotomy wires are present. Abdomen: The liver is normal in size and diffusely low in attenuation consistent with fatty infiltration. There is no focal mass or dilatation of the biliary tree. The gallbladder is not distended. The spleen, pancreas and bilateral adrenal glands are within normal limits. Bilateral kidneys are normal in size with no contour deforming mass identified. There is mild right renal cortical scarring. There is no radiopaque renal or ureteral calculus identified. There is no hydronephrosis or hydroureter. There is no retroperitoneal adenopathy. The abdominal aorta is ectatic with mild aneurysmal dilatation measuring up to 2.8 cm. There are scattered atherosclerotic calcifications. There is no abnormal bowel wall thickening or distension. There is no bowel obstruction or free air. A normal appendix is identified. There are few scattered colonic diverticuli without evidence of diverticulitis. There is no ascites. Pelvis: The bladder is unremarkable. The uterus and adnexa are within normal limits. There is a small left inguinal hernia containing fat. There is no significant pelvic adenopathy or free fluid. Evaluation of the osseous structures demonstrates no suspicious lytic or blastic lesion. There are defects of bilateral pars interarticularis of L5. IMPRESSION: Fatty infiltration of the liver. Few scattered colonic diverticuli without evidence of evidence of diverticulitis. 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 Vascular calcifications reflective of atherosclerosis. Small left inguinal hernia containing fat. Mild right basilar atelectasis/scarring. Mild to moderate cardiomegaly. Bilateral pars defects of L5. Otherwise no acute abnormality identified within the abdomen and pelvis. .Nasim Boyer MD, MD Date Time Electronically viewed and signed by .Nasim Boyer MD, MD on 01/11/2017 05:20 .T/ CC: JUAREZ VELÁSQUEZ MD MEDICAL MAKING DECISION: The patient is a 71-year-old female, presenting with acute abdominal pain of unclear etiology. She was treated with morphine 2 IV for pain, Zofran 4 mg IV for nausea with good response. The differential diagnoses considered include but are not limited to cholelithiasis, cholecystitis, cystitis, pancreatitis, hepatitis, gastritis, peptic ulcer disease, gastric ulcer, appendicitis, diverticulitis, cholangitis, choledocholithiasis, partial small bowel obstruction. Departure Diagnosis: Primary Impression: Abdominal pain Condition: Good Comments She was discharged with Motrin I discussed the findings with the patient. I advised the patient to follow-up with the primary physician in about 1-2 days, sooner if needed and return if any concern. JUAREZ VELÁSQUEZ MD January 11, 2017 04:36
[2017-01-11] MEDS ORDERED: ONDANSETRON 4 MG INJ IV STA (04:41)
[2017-01-11] MEDS ORDERED: morphine 2 MG INJ IV STA (04:41)
[2017-01-11 05:06] LABS: URINE BLOOD (Dip) POC Negative (NEGATIVE)
[2017-01-11 05:15] LABS: ADD SCAN DIFF NO
[2017-01-11 05:20] LABS: BASOPHILS % 0.2 % (0.0-2.0); EOSINOPHILS # 0.2 10^3/ul (0.0-0.5); EOSINOPHILS % 3.6 % (0.0-7.0); HEMATOCRIT 38.5 % (37.0-47.0); HEMOGLOBIN 12.2 g/dl (12.0-16.0); LYMPHOCYTES # 1.5 10^3/ul (0.8-2.9); LYMPHOCYTES % 32.5 % (15.0-51.0); MEAN CORPUSCULAR HEMOGLOBIN 30.7 pg (29.0-33.0); MEAN CORPUSCULAR HGB CONC 31.7 g/dl (32.0-37.0); MEAN CORPUSCULAR VOLUME 96.7 fl (82.0-101.0); MEAN PLATELET VOLUME 9.3 fl (7.4-10.4); MONOCYTE # 0.3 10^3/ul (0.3-0.9); MONOCYTES % 6.7 % (0.0-11.0); NEUTROPHIL # 2.6 10^3/ul (1.6-7.5); NEUTROPHILS % 56.8 % (39.0-77.0); PLATELET COUNT 213 10^3/UL (140-415); RED BLOOD COUNT 3.98 10^6/ul (4.20-5.40); RED CELL DISTRIBUTION WIDTH 12.6 % (11.5-14.5); WHITE BLOOD COUNT 4.5 10^3/ul (4.8-10.8)
--- NOTE | 2017-01-11 05:21 | RADRPT ---
PROCEDURE: CT Abdomen and pelvis without contrast. CLINICAL INDICATION: Abdominal pain. TECHNIQUE: CT scan of the abdomen and pelvis was performed on a multi-detector high-resolution CT scanner. Contiguous axial images were obtained from the lung bases to the ischial tuberosities wit hout intravenous contrast. Coronal and sagittal reformatted images were also obtained. Images were reviewed on the PACS workstation. One or more of the following dose reduction techniques were used: - Automated exposure control. - Adjustment of the mA and/or kV according to patient size. - Use of iterative reconstruction technique. Exam CTD/vol = 11.21 mGy. Total exam DLP = 620.78 mGy-cm. COMPARISON: 02/16/2016. FINDINGS: Evaluation of the lung bases demonstrates mild right basilar atelectasis/scarring. The heart is enl arged. Mediasternotomy wires are present. Abdomen: The liver is normal in size and diffusely low in attenuation consistent with fatty infiltr ation. There is no focal mass or dilatation of the biliary tree. The gallbladder is not distended. The spleen, pancreas and bilateral adrenal glands are within normal limits. Bilateral kidneys are normal in size with no contour deforming mass identified. There is mild right renal cortical scarri ng. There is no radiopaque renal or ureteral calculus identified. There is no hydronephrosis or hyd roureter. There is no retroperitoneal adenopathy. The abdominal aorta is ectatic with mild aneurys mal dilatation measuring up to 2.8 cm. There are scattered atherosclerotic calcifications. There is no abnormal bowel wall thickening or distension. There is no bowel obstruction or free air . A normal appendix is identified. There are few scattered colonic diverticuli without evidence of diverticulitis. There is no ascites. Pelvis: The bladder is unremarkable. The uterus and adnexa are within normal limits. There is a s mall left inguinal hernia containing fat. There is no significant pelvic adenopathy or free fluid. Evaluation of the osseous structures demonstrates no suspicious lytic or blastic lesion. There are d efects of bilateral pars interarticularis of L5. IMPRESSION: Fatty infiltration of the liver. Few scattered colonic diverticuli without evidence of evidence of diverticulitis. 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 Vascular calcifications reflective of atherosclerosis. Small left inguinal hernia containing fat. Mild right basilar atelectasis/scarring. Mild to moderate cardiomegaly. Bilateral pars defects of L5. Otherwise no acute abnormality identified within the abdomen and pelvis. .Nasim Boyer MD, Date Time Electronically viewed and signed by .Nasim Boyer MD, on 01/11/2017 05:20 .T/
[2017-01-11 05:42] LABS: ALBUMIN 4.1 g/dl (3.3-4.9); ALBUMIN/GLOBULIN RATIO 1.17; BILIRUBIN,INDIRECT 0.3 mg/dl (0-1.1); BILIRUBIN,TOTAL 0.3 mg/dl (0.2-1.3); CALCIUM 9.6 mg/dl (8.4-10.2); CREATININE 0.8 mg/dl (0.44-1.00); POTASSIUM 4.6 mmol/L (3.5-5.1); TOTAL PROTEIN 7.6 g/dl (6.1-8.1)
[2017-01-11] MEDS ORDERED: IBUP400T22 PO (05:52)
[2017-01-11 06:10] VITALS: BP 162/88; PULSE 80; RESP 16; TEMP 97.5
== END 2017-01-11 06:10 | disposition home or self-care (01) ==
LOC: E/R 21:37
DX: R10.84 Generalized abdominal pain (principal)
CPT/HCPCS: 36415; 74176; 80053; 81003; 83690; 85025; 96374; 96375; J2270; J2405; Z7502